=== PATIENT | female | born 1945 | race Two or more races ===

== ENCOUNTER 2018-01-25 19:52 | Emergency (ER) | payer MEDICARE ==
--- OUTSIDE RECORDS SUMMARY | 2018-01-25 20:07 | XMS REPORT ---
:1945 External Reference #:[id number] Author Organization [facility] Address [address] [place] [address] Phone [phone] Care Team Providers Name Role Phone Elaine Solo M.D. Primary Care Physician Unavailable Payers Type Date Identification Numbers Payment Provider Subscriber Commercial Expires: Policy Number: BS [place] [employer] Isis Cadena 2012 [id number] Group Number: [id number] [address] [address] PayID: [id number] [place] [address] Medigap Part B Policy Number: [id number] [employer] Isis Cadena PayID: [id number] [address] [place] [address] Problems Date Description Provider Status Onset: 12/31/2015 Combined form of senile cataract Lulú Watkins O.D. Active Onset: 01/22/2017 Tear film insufficiency Devendra Fernandes M.D. Active Onset: 12/31/2015 Internal hordeolum Lulú Watkins O.D. Active Onset: 12/31/2015 Vitreous degeneration Lulú Watkins O.D. 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 Multi Vitamin Active Tablets Unknown Daily 000 Restasis Hx Emulsion 0.05% 90units 1 drops Devendra Hays - both eyes Sravani Fernandes twice a 018 day Results Description No Information Procedures Date CPT Code Description Status 01/22/2017 27284 Est Patient Comprehensive Exam Completed 01/23/2016 31281 Est Patient Intermediate Exam Completed 12/31/2015 87879 Est Patient Comprehensive Exam Completed 02/15/2014 94653 Est Patient Comprehensive Exam Completed 03/08/2013 95274 Dilation Og Lacrimal Punctum,W/Wo Completed 02/14/2013 40177 Est Patient Intermediate Exam Completed 04/11/2012 41977 Determination Of Refractive State Completed 04/11/2012 72317 New Patient Comprehensive Exam Completed Encounters Type Date Location Provider CPT E/M Dx Office Visit 10/23/2013 11:00a Devendra Fernandes MD, Mounika Jim O.D. [id number] 373.12 pc 375.15 Office Visit 10/09/2013 12:30p Devendra Fernandes MD, Mounika Jim O.D. 22255 373.00 pc Office Visit 03/08/2013 1:15p Devendra Fernandes MD, Frederick Doty M.D. 22271 375.30 pc 375.30 Plan of Care 01/24/2018 - Devendra Fernandes M.D.H25.813 Combined forms of age-related cataract , bilateralComments:Smoking can increase the risk of developing or worsening any eye related disease, as well as affect your overall health. If you are a smoker, we strongly recommend that you quit.If you are not a smoker, we strongly recommend that you do not start. You have been diagnosed with cataracts. If you are happy with your vision as it is now, then we will see you at your next scheduled appointment. If you feel like your vision is getting worse before your scheduled appointment, please call Adelaida or Mariaelena .Follow up:1 Year Follow Up Diagnostic Refraction You can expect to have your eyes dilated at your next visit.If Dr. Fernandes orders any additional testing , it may require extra time. We recommend that you bring sunglasses, as dilation drops often make you light sensitive until they wear off. We always recommend you bring someone to drive you home if you are uncomfortable driving with your eyes dilated. If you have any questions before your next visit, feel free to call our office at .H04.123 Dry eye syndrome of bilateral lacrimal glandsComments:Both of your eyes appear to be dry. Use artificial tears as directed. You can use the tears more often if you are reading a book or are on the computer, as we tend to blink less, making our eyes dry out more.[facility] offers a few items in our optical department to help alleviate dry eye symptoms. Systane and Refresh are good brands of tears you can use. You can pick these up at any pharmacy and they do not require a prescription.
[2018-01-25 20:56] LABS: ABS Basophils 0 10^3/ul (0-0.2); ABS Eosinophils 0.1 10^3/ul (0-0.6); ABS Lymphocytes 1.5 10^3/ul (1.0-4.8); ABS Monocytes 0.4 10^3/ul (0-0.8); ABS Neutrophils 3.3 10^3/ul (1.5-7.7); ABS Nucleated RBC 0 10^3/ul; Hematocrit 36 % (35-47); Hemoglobin 12.3 g/dl (12.0-16.0); Lymphocyte % 28.2 % (25-47); Mean Corpuscular HGB Conc 34 g/dl (31-36); Mean Corpuscular Hemoglobin 31 pg (27-31); Mean Corpuscular Volume 92 fL (80-97); Mean Platelet Volume 9.9 um3 (7.4-10.4); Nucleated Red Blood Cells % 0; Platelet Count 166 10^3/ul (150-450); Red Blood Count 3.92 10^6/ul (4.0-5.4); Red Cell Distribution Width 14 % (10.5-15); White Blood Count 5.4 10^3/ul (3.5-10.8)
--- NOTE | 2018-01-25 21:07 | RAD ---
INDICATION: Left-sided chest pain COMPARISON: None TECHNIQUE: PA and lateral dual-energy views were obtained. FINDINGS: Bones/Soft Tissues: There are no acute bony findings. Cardiomediastinal: The cardiomediastinal silhouette is normal. Lungs: There are no infiltrates. Pleura: There is minor biapical scarring. There are no effusions. Other: None IMPRESSION: NO ACTIVE DISEASE.
[2018-01-25 21:20] LABS: EGFR Non-African American 119.2 (>60)
[2018-01-25 22:22] VITALS: BP 111/69
--- NOTE | 2018-01-25 22:29 | ED ---
Ryan Briones Sixian, scribed for Marvin Jones MD on 01/25/18 at 2022 . HPI Chest Pain - HPI Summary HPI Summary: This patient is a 72 year old F presenting to ED with a chief complaint of L sided chest pain worsening since last night. The CC is described as constant pain and radiating to her back. The patient rates the pain 3/10 in severity. Symptoms aggravated and alleviated by nothing. Patient denies SOB, diaphoresis, abdominal pain, vomiting, dizziness, lightheadedness, nausea. Patient reports that she was watching TV when the pain started. - History of Current Complaint Chief Complaint: EDChestWallPain Time Seen by Provider: 01/25/18 20:12 Hx Obtained From: Patient Onset/Duration: Started Hours Ago, Still Present Timing: Constant, Lasting Hours Current Severity: Mild Pain Intensity: 3 Pain Scale Used: 0-10 Numeric Chest Pain Radiates: Yes Chest Pain Radiates To:: Back Aggravating Factor(s): Nothing Alleviating Factor(s): Nothing Associated Signs and Symptoms: Positive: Other: - Patient denies SOB, diaphoresis, abdominal pain, vomiting, dizziness, lightheadedness, nausea. - Allergy/Home Medications Allergies/Adverse Reactions: Allergies Allergy/AdvReac Type Severity Reaction Status Date / Time No Known Allergies Allergy Verified 07/07/17 13:40 Home Medications: Home Medications NK [No Home Medications Reported] 01/25/18 [History Confirmed 01/25/18] PMH/Surg Hx/FS Hx/Imm Hx Endocrine/Hematology History: Denies: Hx Diabetes Cardiovascular History: Denies: Hx Hypertension, Hx Pacemaker/ICD History: Denies: Hx Renal Disease Sensory History: Denies: Hx Hearing Aid Psychiatric History: Denies: Hx Panic Disorder - Surgical History Surgery Procedure, Year, and Place: TUBAL LIGATION 1975. GANGLION CYST RIGHT HAND REMOVED Infectious Disease History: No Infectious Disease History: Denies: Traveled Outside the [place] in Last 30 Days - Family History Known Family History: Negative: Hypertension, Diabetes - Social History Alcohol Use: Rare Substance Use Type: Reports: None Smoking Status (MU): Never Smoked Tobacco Review of Systems Negative: Skin Diaphoresis Positive: Chest Pain Negative: Shortness Of Breath Negative: Vomiting, Nausea Neurological: Negative - dizziness, lightheadedness All Other Systems Reviewed And Are Negative: Yes Physical Exam - Summary Physical Exam Summary: Appearance: Well-appearing, Well-nourished, lying in bed comfortably Skin: Warm, dry, no obvious rash Eyes: sclera anicteric, no conjunctiva pallor ENT: mucous membranes moist, pharynx appears normal Neck: Supple, nontender Respiratory: Clear to auscultation, no signs of respiratory distress Cardiovascular: Normal S1, S2. No murmurs. Normal distal pulses in tibial and radial bilaterally. Abdomen: Soft, nontender, normal active bowel sounds present Musculoskeletal: Normal, Strength/ROM Intact Neurological: A&Ox3, awake and alert, mentation is normal, speech is fluent and appropriate Psychiatric: affect is normal, does not appear anxious or depressed Triage Information Reviewed: Yes Vital Signs On Initial Exam: Initial Vitals Temp Pulse Resp BP Pulse Ox 97.8 F 65 16 154/71 100 01/25/18 19:56 01/25/18 19:56 01/25/18 19:56 01/25/18 19:56 01/25/18 19:56 Vital Signs Reviewed: Yes Diagnostics - Vital Signs Vital Signs Temp Pulse Resp BP Pulse Ox 01/25/18 19:56 97.8 F 65 16 154/71 100 - Laboratory Lab Results: Lab Results 01/25/18 01/25/18 01/25/18 Range/Units 20:47 20:47 20:47 WBC 5.4 (3.5-10.8) 10^3/ul RBC 3.92 L (4.0-5.4) 10^6/ul Hgb 12.3 (12.0-16.0) g/dl Hct 36 (35-47) % MCV 92 (80-97) fL MCH 31 (27-31) pg MCHC 34 (31-36) g/dl RDW 14 (10.5-15) % Plt Count 166 (150-450) 10^3/ul MPV 9.9 (7.4-10.4) um3 Neut % (Auto) 61.9 (38-83) % Lymph % (Auto) 28.2 (25-47) % [facility] % (Auto) 7.1 H (0-7) % Eos % (Auto) 2.0 (0-6) % Baso % (Auto) 0.8 (0-2) % Absolute Neuts (auto) 3.3 (1.5-7.7) 10^3/ul Absolute Lymphs (auto) 1.5 (1.0-4.8) 10^3/ul Absolute Monos (auto) 0.4 (0-0.8) 10^3/ul Absolute Eos (auto) 0.1 (0-0.6) 10^3/ul Absolute Basos (auto) 0 (0-0.2) 10^3/ul Absolute Nucleated RBC 0 10^3/ul Nucleated RBC % 0 D-Dimer, Quantitative < 200 (Less Than 230) ng/mL Sodium 141 (139-145) mmol/L Potassium 4.1 (3.5-5.0) mmol/L Chloride 108 (101-111) mmol/L Carbon Dioxide 28 (22-32) mmol/L Anion Gap 5 (2-11) mmol/L BUN 15 (6-24) mg/dL Creatinine 0.51 (0.51-0.95) mg/dL Est GFR ( Amer) 153.3 (>60) Est GFR (Non-Af Amer) 119.2 (>60) BUN/Creatinine Ratio 29.4 H (8-20) Glucose 103 H (70-100) mg/dL Calcium 8.9 (8.6-10.3) mg/dL Total Bilirubin 0.40 (0.2-1.0) mg/dL AST 14 (13-39) U/L ALT 10 (7-52) U/L Alkaline Phosphatase 45 (34-104) U/L Troponin I 0.00 (<0.04) ng/mL Total Protein 6.4 (6.4-8.9) g/dL Albumin 4.1 (3.2-5.2) g/dL Globulin 2.3 (2-4) g/dL Albumin/Globulin Ratio 1.8 (1-3) Result Diagrams: 01/25/18 20:47 01/25/18 20:47 Lab Statement: Any lab studies that have been ordered have been reviewed, and results considered in the medical decision making process. - Radiology CXR Radiology Interpretation Completed By: Radiologist - NO ACTIVE DISEASE. ED physician has reviewed this radiology report. - EKG 1999 Cardiac Rate: NL EKG Rhythm: Sinus Rhythm - 69 BPM EKG Interpretation: Minimal slurring, likely repol abn Re-Evaluation - Re-Evaluation First Eval Re-Evaluation Time: 22:00 Change: Unchanged Chest Pain Course/Dx - Diagnoses Provider Diagnoses: Chest wall pain Discharge - Sign-Out/Discharge Documenting (check all that apply): Discharge/Admit/Transfer - Discharge Plan Condition: Good Disposition: HOME Patient Education Materials: Noncardiac Chest Pain (ED) Referrals: Elaine Solo MD [Primary Care Provider] - Additional Instructions: RETURN TO THE EMERGENCY DEPARTMENT FOR CHANGING OR WORSENING SYMPTOMS. The documentation as recorded by the Ryan shelton Sixian accurately reflects the service I personally performed and the decisions made by Robert parra Richard, MD.
== END 2018-01-25 22:21 | disposition home or self-care (01) ==
LOC: ED 19:52
DX: R07.89 Other chest pain (principal)
CPT/HCPCS: 36415; 71046; 80053; 84484; 85025; 85379; 93005; 99282